=== PATIENT | male | born 1960 | race Two or more races ===

== ENCOUNTER → 2018-09-25 | Outpatient (RCR) | payer BC | LOC: PT 15:33 | PROVIDERS: ATTEND Orthopaedic Surgery Sports Medicine | DX: M25.511 Pain in right shoulder (principal); M75.41 Impingement syndrome of right shoulder; M75.121 Complete rotator cuff tear or rupture of right shoulder, not specified as traumatic ==

== ENCOUNTER 2018-10-16 16:00 | Outpatient (RCR) | payer BC | END 2018-10-26 | LOC: PT 16:00 | PROVIDERS: ATTEND Orthopaedic Surgery Sports Medicine | DX: M25.511 Pain in right shoulder (principal); M75.121 Complete rotator cuff tear or rupture of right shoulder, not specified as traumatic; M75.41 Impingement syndrome of right shoulder ==